=== PATIENT | male | born 1955 | race Caucasian/White ===

== ENCOUNTER → 2020-01-12 | Outpatient (CLI) | payer MEDICARE ==
[~2020-01-12] MED LIST: IBUP-1222 PO; NAPR220T77 PO; OMEP40CA42 PO; TRAM50TA2 PO
== END | disposition home or self-care (01) ==
LOC: CARD 09:56
PROVIDERS: ATTEND Internal Medicine Geriatric Medicine
DX: I25.84 Coronary atherosclerosis due to calcified coronary lesion (principal); I50.32 Chronic diastolic (congestive) heart failure; R07.9 Chest pain, unspecified
CPT/HCPCS: 93017; 93350